=== PATIENT | female | born 1965 | race Caucasian/White ===

== ENCOUNTER 2017-11-24 14:18 | Emergency (ER) | payer OTHER ==
[~2017-11-24] VITALS: Ht 162.6 cm; Wt 74.0 kg
[~2017-11-24 14:18] MED LIST: IBUP400 PO; SYNT112T PO
[2017-11-24 14:29] VITALS: BP 161/78; PULSE 73; RESP 16; TEMP 98.6; O2SAT 98
[2017-11-24] MEDS ORDERED: LEVO112T2 PO (16:25)
--- NOTE | 2017-11-24 16:44 | PD ---
HPI Chief Complaint: GI Complaint Time Seen by Provider: 16:29 Travel History International Travel<30 days: No Contact w/Intl Traveler<30days: No Traveled to known affect area: No History of Present Illness HPI 52yo F with PMH of hernia, right oopherectomy for ectopic presents to the ED with c/o right lower abdominal pain since 7:30pm. Said pain radiated to rest of abdomen. Associated with nausea. Denies any fever, sob, chest pain, diarrhea, dysuria, hematuria. Said her hernia was out but now it is back in. Last bowel movement was today. PFSH Past Medical History Diminished Hearing: No Immunizations Current: Yes Thyroid Disease: Yes Influenza Vaccination: No ?: Not Tubal Ligation: Yes Past Surgical History Gynecologic Surgery: Yes (RIGHT OVARY AND FALLOPIAN TUBE REMOVED) Social History Alcohol Use: No Tobacco Use: No Substance Use: No Allergies-Medications (Allergen,Severity, Reaction): Coded Allergies: No Known Allergies (Unverified Adverse Reaction, Unknown, 11/24/17) Reported Meds & Prescriptions Reported Meds & Active Scripts Active Reported Levothyroxine (Levothyroxine Sodium) 112 Mcg Tab 112 Mcg PO DAILY Review of Systems Except as stated in HPI: all other systems reviewed are Neg Physical Exam Narrative GENERAL: 52yo F in mild distress. SKIN: Focused skin assessment warm/dry. HEAD: Atraumatic. Normocephalic. CARDIOVASCULAR: Regular rate and rhythm. No murmur appreciated. RESPIRATORY: No accessory muscle use. Clear to auscultation. Breath sounds equal bilaterally. GASTROINTESTINAL: Abdomen soft, +TTP RLQ. +Mild ttp suprapubic region. No rebound tenderness or guarding. No hernia palpated that needs reduction. MUSCULOSKELETAL: No obvious deformities. No clubbing. No cyanosis. No edema. NEUROLOGICAL: Awake and alert. No obvious cranial nerve deficits. Motor grossly within normal limits. Normal speech. PSYCHIATRIC: Appropriate mood and affect; insight and judgment normal. Data Data Last Documented VS Vital Signs Date Time Temp Pulse Resp B/P (MAP) Pulse Ox O2 Delivery O2 Flow Rate FiO2 11/24/17 17:01 98 Room Air 11/24/17 14:29 98.6 73 16 161/78 (105) Orders Orders Complete Blood Count With Diff (11/24/17 16:39) Comprehensive Metabolic Panel (11/24/17 16:39) Lipase (1/11/18 16:39) Prothrombin Time / Inr (Pt) (11/24/17 16:39) Act Partial Throm Time (Ptt) (11/24/17 16:39) Urinalysis - C+S If Indicated (11/24/17 16:39) Ct Abd/Pel W Iv Contrast(Rout) (11/24/17 16:39) Iv Access Insert/Monitor (11/24/17 16:39) Ecg Monitoring (11/24/17 16:39) Oximetry (11/24/17 16:39) Morphine Inj (Morphine Inj) (11/24/17 16:45) Ondansetron Inj (Zofran Inj) (11/24/17 16:45) Sodium Chloride 0.9% Flush (Ns Flush) (11/24/17 16:45) Iohexol 350 Inj (Omnipaque 350 Inj) (11/24/17 17:43) Ketorolac Inj (Toradol Inj) (11/24/17 18:45) Labs Laboratory Tests Test 11/24/17 16:55 White Blood Count 6.9 TH/MM3 Red Blood Count 4.19 MIL/MM3 Hemoglobin 12.1 GM/DL Hematocrit 36.8 % Mean Corpuscular Volume 87.9 FL Mean Corpuscular Hemoglobin 28.9 PG Mean Corpuscular Hemoglobin Concent 32.8 % Red Cell Distribution Width 12.2 % Platelet Count 264 TH/MM3 Mean Platelet Volume 7.5 FL Neutrophils (%) (Auto) 83.6 % Lymphocytes (%) (Auto) 12.6 % Monocytes (%) (Auto) 3.0 % Eosinophils (%) (Auto) 0.6 % Basophils (%) (Auto) 0.2 % Neutrophils # (Auto) 5.8 TH/MM3 Lymphocytes # (Auto) 0.9 TH/MM3 Monocytes # (Auto) 0.2 TH/MM3 Eosinophils # (Auto) 0.0 TH/MM3 Basophils # (Auto) 0.0 TH/MM3 CBC Comment DIFF FINAL Differential Comment Prothrombin Time 10.1 SEC Prothromb Time International Ratio 1.0 RATIO Activated Partial Thromboplast Time 28.5 SEC Urine Color YELLOW Urine Turbidity CLEAR Urine pH 5.5 Urine Specific [place] 1.021 Urine Protein NEG mg/dL Urine Glucose (UA) NEG mg/dL Urine Ketones TRACE mg/dL Urine Occult Blood NEG Urine Nitrite NEG Urine Bilirubin NEG Urine Leukocyte Esterase NEG Urine Squamous Epithelial Cells 0-5 /hpf Microscopic Urinalysis Comment CULT NOT INDICATED Blood Urea Nitrogen 14 MG/DL Creatinine 0.77 MG/DL Random Glucose 94 MG/DL Total Protein 8.3 GM/DL Albumin 4.1 GM/DL Calcium Level 9.3 MG/DL Alkaline Phosphatase 95 U/L Aspartate Amino Transf (AST/SGOT) 14 U/L Alanine Aminotransferase (ALT/SGPT) 27 U/L Total Bilirubin 0.6 MG/DL Sodium Level 136 MEQ/L Potassium Level 4.2 MEQ/L Chloride Level 103 MEQ/L Carbon Dioxide Level 27.1 MEQ/L Anion Gap 6 MEQ/L Estimat Glomerular Filtration Rate 78 ML/MIN Lipase 122 U/L [facility] Medical Decision Making Medical Screen Exam Complete: Yes Emergency Medical Condition: Yes Differential Diagnosis Appendicitis vs. colitis vs. UTI Narrative Course 52yo F with right lower abdominal pain today. Labs reviewed, no leukocytosis. Lipase normal. LFTs normal. UA showed no leukocyte. Trace ketone. Pt initially ordered morphine 2mg but did not want it because she thinks it is too strong so gave toradol instead. Pt reevaluated at bedside and said pain has improved. No longer nauseous. CT a/p showed spigelian type hernia right lower abdominal wall with mesenteric fat extending between musculature. Unremarkable bowel gas pattern with no inflammatory change or obstruction. There was no mention of the appendix so I called and spoke to radiologist Dr. Mary and he said that appendix is visualize and appears normal. Ringlike calcified structure in spleen which may be related to old hematoma. Pt has no LUQ pain. Return precautions given. Diagnosis Primary Impression: Spigelian hernia Referrals: Abraham nAderson MD as needed Patient Instructions: General Instructions Departure Forms: Tests/Procedures Additional Instructions: Please follow up with general surgery as outpatient if you have recurrent pain from hernia and want to discuss definitive treatment. Return to the ED if symptoms worsen. Med/Other Pt SpecificInfo: Prescription(s) given Scripts Acetaminophen (Tylenol) 325 Mg Tab 650 MG PO Q6H Y for PAIN SCALE 1 TO 4, #20 TAB 0 Refills Prov: PérezMeka DO 11/24/17 Disposition: 01 DISCHARGE HOME Condition: Stable Meka Pérez DO Nov 24, 2017 16:44
[2017-11-24] MEDS ORDERED: SODIUM CHLORIDE 0.9% FLUSH 10 ML FLUSH IV FLUSH PRN (16:45)
[2017-11-24] MEDS ORDERED: MORPHINE SULFATE 4 MG/ML INJ IV PUSH ONE (16:45)
[2017-11-24] MEDS ORDERED: ONDANSETRON HCL 4 MG/2 ML VIAL IVP ONE (16:45)
[2017-11-24 17:01] VITALS: O2SAT 98
[2017-11-24 17:01] LABS: AUTOMATED NEUTROPHIL # 5.8 TH/MM3 (1.8-7.7); BASOPHIL % 0.2 % (0.0-2.0); BILIRUBIN, URINE NEG (NEG); BLOOD, URINE NEG (NEG); EOSINOPHIL % 0.6 % (0.0-4.0); GLUCOSE,URINE NEG (NEG); HEMATOCRIT 36.8 % (35.0-46.0); HEMOGLOBIN 12.1 GM/DL (11.6-15.3); KETONE, URINE TRACE mg/dL (NEG); LYMPH % 12.6 % (9.0-44.0); LYMPHOCYTE # 0.9 TH/MM3 (1.0-4.8); MEAN CELL VOLUME 87.9 FL (80.0-100.0); MEAN CORPUSCULAR HEMOGLOBIN 28.9 PG (27.0-34.0); MEAN CORPUSCULAR HGB CONC 32.8 % (32.0-36.0); MEAN PLATELET VOLUME 7.5 FL (7.0-11.0); MONOCYTE # 0.2 TH/MM3 (0-0.9); NEUT % 83.6 % (16.0-70.0); NITRITE,URINE NEG (NEG); PH, URINE 5.5 (5.0-8.5); PLATELET COUNT 264 TH/MM3 (150-450); RED BLOOD COUNT 4.19 MIL/MM3 (4.00-5.30); RED CELL DISTRIBUTION WIDTH 12.2 % (11.6-17.2); URINE LEUKOCYTE ESTERASE NEG (NEG); WHITE BLOOD COUNT 6.9 TH/MM3 (4.0-11.0)
[2017-11-24 17:13] LABS: CHLORIDE 103 MEQ/L (98-107); SODIUM (NA) 136 MEQ/L (136-145)
[2017-11-24 17:16] LABS: CALCIUM 9.3 MG/DL (8.5-10.1)
[2017-11-24 17:17] LABS: ALBUMIN 4.1 GM/DL (3.4-5.0); BICARBONATE 27.1 MEQ/L (21.0-32.0); BLOOD UREA NITROGEN 14 MG/DL (7-18); GLUCOSE,RANDOM 94 MG/DL (74-106); LIPASE 122 U/L (73-393)
[2017-11-24 17:19] LABS: ALT (GPT) 27 U/L (10-53)
[2017-11-24 17:20] LABS: AST (GOT) 14 U/L (15-37); CREATININE 0.77 MG/DL (0.50-1.00); GLOMERULAR FILTRATION RATE 78 ML/MIN (>89)
[2017-11-24 17:21] LABS: TOTAL BILIRUBIN ADULT 0.6 MG/DL (0.2-1.0); TOTAL PROTEIN 8.3 GM/DL (6.4-8.2)
[2017-11-24 17:22] LABS: ALKALINE PHOSPHATASE 95 U/L (45-117)
[2017-11-24 17:23] LABS: SQUAMOUS EPITHELIAL CELL URINE 0-5 /hpf (0-5); URINE COLOR YELLOW (YELLW/STRAW)
[2017-11-24] MEDS ORDERED: IOHEXOL 350 MG/ML 10 ML VIAL (for RAD DIAG) IVCONTRAST ONE (17:43)
--- NOTE | 2017-11-24 17:56 | RADRPT ---
EXAM DATE/TIME: 11/24/2017 17:32 This report includes an Addendum and supersedes previous reports for this exam. [facility] COMPARISON: No previous studies available for comparison. INDICATIONS : Right lower quadrant pain. IV CONTRAST: 85 cc Omnipaque 350 (iohexol) IV ORAL CONTRAST: No oral contrast ingested. RADIATION DOSE: 11.15 CTDIvol (mGy) MEDICAL HISTORY : None SURGICAL HISTORY : Tubal ligation. Right oophorectomy. ENCOUNTER: Initial ACUITY: 1 day PAIN SCALE: 7/10 LOCATION: Right lower quadrant TECHNIQUE: Volumetric scanning of the abdomen and pelvis was performed. Using automated exposure control and ad justment of the mA and/or kV according to patient size, radiation dose was kept as low as reasonably achievable to obtain optimal diagnostic quality images. DICOM format image data is available electro nically for review and comparison. FINDINGS: LOWER LUNGS: The visualized lower lungs are clear. LIVER: Homogeneous density without lesion. There is no dilation of the biliary tree. No calcified gallston es. The gallbladder is unremarkable in appearance. SPLEEN: Normal in size and shape. There is a calcified lesion in the central spleen with central low attenuat ion area dense peripheral calcification. PANCREAS: Within normal limits. KIDNEYS: Normal in size and shape. There is no mass, stone or hydronephrosis. ADRENAL GLANDS: Within normal limits. VASCULAR: There is no aortic aneurysm. BOWEL/MESENTERY: No oral contrast was given limiting the sensitivity of the exam. The stomach, small bowel, and colon demonstrate no acute abnormality. There is no free intraperitoneal air or fluid. ABDOMINAL WALL: There is a Spigelian type hernia involving the right lower lateral abdominal wall musculature with m esenteric fat extending between the musculature. Specimen axial image #54. RETROPERITONEUM: There is no lymphadenopathy. BLADDER: No wall thickening or mass. REPRODUCTIVE: Uterus is heterogeneous and lobular with an apparent leiomyoma. INGUINAL: There is no lymphadenopathy or hernia. MUSCULOSKELETAL: Within normal limits for patient age. CONCLUSION: 1. Spigelian type hernia involving the lower right lateral abdominal wall musculature. 2. Unremarkable bowel gas pattern with no inflammatory change or obstruction. 3. Ringlike calcified structure in the spleen which be may be related to old hematoma. Tim Rosas MD on November 24, 2017 at 17:46 Board Certified Radiologist. This report was verified electronically. ADDENDUM: Normal appendix. Ismael Wright MD on November 24, 2017 at 18:43 Board Certified Radiologist. This report was verified electronically.
[2017-11-24 18:07] LABS: PROTHROMBIN TIME - PATIENT 10.1 SEC (9.8-11.6)
[2017-11-24] MEDS ORDERED: KETOROLAC TROMETHAMINE 30 MG/ML (IVP) VIAL IV PUSH ONE (18:45)
[2017-11-24] MEDS ORDERED: TYLE325T PO (18:47)
[2017-11-24 19:35] VITALS: BP 154/78
== END 2017-11-24 19:37 | disposition home or self-care (01) ==
LOC: PHED 14:18
DX: K43.9 Ventral hernia without obstruction or gangrene (principal); E07.9 Disorder of thyroid, unspecified
CPT/HCPCS: 74177; 80053; 81001; 83690; 85025; 85610; 85730; 99285; Q9967

== ENCOUNTER → 2018-05-09 | Day surgery (SDC) | payer OTHER ==
[~2018-05-09] VITALS: Ht 162.6 cm; Wt 73.1 kg
[~2018-05-09] MED LIST changes: +ACETAMINOPHEN 1000 MG/100 ML 100 ML IV ONE; +APREPITANT 40 MG CAP ONE; +BUPIVACAINE/EPINEPHRINE 0.25% 50 ML VIAL ONE; +CHLORHEXIDINE GLUCONATE 2 % 1 PACK (2 CLOTHS) TOPICAL PRN; +DEXAMETHASONE SOD PHOS 4 MG/ML VIAL IV ONE; +DO NOT ADM ANY ANTICOAGULANT DRUGS PRN; +GLYCOPYRROLATE 1 MG/5 ML SYRINGE IV PUSH ONE; +HYDROmorphone HCL PF 2 MG/ML VIAL ONE; -IBUP400 PO; +KETOROLAC TROMETHAMINE 30 MG/ML (IVP) VIAL IV PUSH ONE; +LACTATED RINGER'S 1000 ML INJ 2,000 ML IV ONE; +LACTATED RINGER'S 1000 ML IV PRN; +LEVO100T5 PO; +LIDOCAINE HCL 1% PF 5 ML SYRINGE OTHER ONE; +METOPROLOL TARTRATE 25 MG TAB PO PRN; +MIDAZOLAM HCL 2 MG/2 ML VIAL ONE; +NEOSTIGMINE 5 MG/5 ML SYRINGE IV PUSH ONE; +ONDANSETRON HCL 4 MG/2 ML VIAL IV PUSH ONE; +POVIDONE IODINE 5% (ANTISEPSIS KIT) 4 APPLICATIONS EACH NARE PRN; +PROPOFOL 200 MG/20 ML AMP IV ONE; +ROCURONIUM INJ 50 MG/5 ML SYRINGE IV PUSH ONE; +SODIUM CHLORID 0.9% 500 ML IV PRN; -SYNT112T PO; +TYLE325T PO; +VANCOMYCIN 1 GM/200 ML PREMIX ON-CALL IV SCH; +ePHEDrine/NS 25 MG/5 ML SYRINGE IV ONE
[2018-05-09 06:50] LABS: BASOPHIL % 1.1 % (0.0-2.0); EOSINOPHIL # 0.1 TH/MM3 (0-0.4); EOSINOPHIL % 2.8 % (0.0-4.0); HEMATOCRIT 35.9 % (35.0-46.0); HEMOGLOBIN 12.2 GM/DL (11.6-15.3); LYMPHOCYTE # 1.1 TH/MM3 (1.0-4.8); MEAN CELL VOLUME 87.7 FL (80.0-100.0); MEAN CORPUSCULAR HEMOGLOBIN 29.8 PG (27.0-34.0); MEAN PLATELET VOLUME 8.2 FL (7.0-11.0); MONO % 8.1 % (0.0-8.0); MONOCYTE # 0.3 TH/MM3 (0-0.9); PLATELET COUNT 241 TH/MM3 (150-450); RED BLOOD COUNT 4.09 MIL/MM3 (4.00-5.30); RED CELL DISTRIBUTION WIDTH 12.9 % (11.6-17.2); WHITE BLOOD COUNT 3.5 TH/MM3 (4.0-11.0)
--- NOTE | 2018-05-09 07:01 | EKG ---
Date Performed: 05/09/2018 Time Performed: 06:19:26 PTAGE: 53 years EKG: Sinus bradycardia Normal ECG except for rate NO PREVIOUS TRACING DOCTOR: Joel Christina Interpretating Date/Time 05/09/2018 07:00:24
[2018-05-09 07:02] LABS: BICARBONATE 26.1 MEQ/L (21.0-32.0); CALCIUM 9.3 MG/DL (8.5-10.1); CREATININE 0.77 MG/DL (0.50-1.00)
--- NOTE | 2018-05-09 10:55 | MP ---
cc: Abraham Anderson MD DATE OF OPERATION: 05/09/2018 PREOPERATIVE DIAGNOSIS: Right spigelian hernia. POSTOPERATIVE DIAGNOSIS: Right spigelian hernia. PROCEDURE: Robotic-assisted repair of right spigelian hernia. ATTENDING SURGEON: Abraham Anderson MD HOME MANAGER: Staff. ANESTHESIA: General and local anesthetic. ESTIMATED BLOOD LOSS: Less than 10 mL. COMPLICATIONS: None. FINDINGS: A moderate size 2.5 x 2.5 cm right spigelian hernia with preperitoneal fat chronically incarcerated completely repaired with 2-0 Quill permanent suture in multiple layers. INDICATIONS FOR PROCEDURE: The patient is a 53-year-old female who experienced a painful bulge in the right side of her abdomen. She was seen by her primary care physician and was referred for possible hernia. PHYSICAL EXAMINATION: The patient had a partial defect with a painful reducible bulge in the right lower quadrant of the abdomen in the location of a spigelian hernia. The patient had previous abdominal surgeries, although she has not had any problems with previous port sites or incisions. Discussed with the patient about risks, benefits, and alternatives to spigelian hernia repair. I also discussed options with and without mesh. After discussion, she did elect to undergo hernia repair robotically assisted with a primary repair with permanent suture. PROCEDURE: The patient was taken to the operating room and placed in a supine position, placed under general endotracheal anesthesia. The patient's abdomen was prepped and draped in a sterile fashion. Timeout was performed. The abdomen was entered through an Optiview technique through the left upper quadrant with a 5 mm port with a 0-degree camera. We entered the abdomen without difficulty and insufflated the abdomen. We surveyed the abdomen. There was no evidence of any complication from our entry. There was an obvious spigelian hernia in the right lower quadrant without any other abnormality in the abdomen. The liver and viscera appeared normal. There was really no scar tissue and the abdominal wall was intact except for the right spigelian hernia. We then placed 2 robot ports, one in the left lateral position and one in the right upper quadrant under direct visualization of the laparoscope. We upsized the 5 mm port in the left upper quadrant with a 10/12 camera port for the robot. We then docked the Smart Checkout robot Si system. We used the Endo Sana with cautery as well as a fenestrated bipolar to take down the hernia sac and reduce out the chronically incarcerated fat contents. Of note, these were removed later in the case with an Endo Catch bag. We then turned our attention towards closure. There was a 2.5 cm x 2.5 cm defect and this was repaired with a single 2-0 Quill monofilament nonabsorbable suture as a primary repair, followed by some wider retention type sutures every week. This was again not tied at the end, as this was with multiple reversible throws secured the suture without a need for a knot. We had excellent technical repair of this hernia. We then closed the peritoneal tissue over the hernia repair using a 3-0 Vicryl suture. We removed all the ports under visualization of the laparoscope, after we had the de-docked the da [place] Si system. All pneumoperitoneum was expressed. We closed the fascia of the 10/12 port in the left upper quadrant with a [id number] 0 Vicryl suture. We closed the skin with 3-0 Vicryl, followed by 4-0 Monocryl and Dermabond. The patient was discontinue from anesthesia and taken to the PACU in stable condition. The patient tolerated the procedure well. No apparent complications. All counts were correct and I was present and scrubbed for the entire procedure. MD DAVID Razo/ALIDA , 10:17 AM , 10:54 AM
[2018-05-09 11:45] VITALS: BP 122/65; PULSE 66; RESP 16; TEMP 96.8; O2SAT 100
== END | disposition home or self-care (01) ==
LOC: HSDC 05:28
PROVIDERS: ATTEND Surgery
DX: K43.0 Incisional hernia with obstruction, without gangrene (principal); Z01.810 Encounter for preprocedural cardiovascular examination
CPT/HCPCS: 00750; 49653; 80048; 85025; 88304; 93005; J0131; J1100; J1885; J2250; J2405; J2710; J3010; J3370; J7120; J8501; 88302; J1170